=== PATIENT | male | born 1990 | race Caucasian/White ===

== ENCOUNTER → 2016-05-28 | Outpatient (CLI) | payer SELFPAY ==
[~2016-05-28] MED LIST: ALEVE220 MG PO; CYCLOBENZAPRINE10 MG PO; FLEXERIL10 MG PO; HYDROCODONE BIT1 T11 PO; IBU800 MG PO; IBUPROFEN800 MG PO; LISINOPRIL10 M1 PO; LISINOPRIL20 MG PO; LOMOTIL 0.025 M1 TA1 PO; MEDROL DOSEPAK4 MG PO; Motrin,Rufen800 MG PO; NAPROSYN500 MG PO; NORTRIPTYLINE H10 M1 PO; NORVASC5 MG PO; PANTOPRAZOLE SO40 MG PO; PENICILLIN-VK500 M1 PO; PREDNICOT20 MG PO; PREDNISONE20 M1 PO; PRILOSEC20 M2 PO; PRILOSEC20 MG PO; PRILOSEC40 M1 PO; ROBITUSSIN DM 105 ML PO; Veetids,V-Cill500 MG PO; ZANTAC 150150 MG PO; ZOFRAN ODT4 MG SL; ZYRTEC10 MG PO; Zofran4 MG PO
[2016-05-28 07:23] LABS: BASO # 0.1 10*3/uL (0.0-0.1); BASO % 0.6 % (0.0-1.0); EOS # 0.2 10*3/uL (0.0-0.4); EOS % 1.8 % (1.0-4.0); HEMATOCRIT 43.2 % (42.0-52.0); HEMOGLOBIN 14.7 g/dl (14.0-18.0); IG # 0.1 10*3/uL (0.0-0.1); LYMPH # 2.9 10*3/uL (1.3-4.4); LYMPH % 23.1 % (27.0-41.0); MEAN CELL VOLUME 87.4 fl (80.0-94.0); MEAN CORPUSCULAR HGB 29.8 pg (27.0-31.0); MEAN PLATELET VOLUME 11.4 fl (9.6-12.3); MONO # 0.7 10*3/uL (0.1-1.0); MONO % 5.6 % (3.0-9.0); NEUT # 8.6 10*3/uL (2.3-7.9); NEUT % 68.5 % (47.0-73.0); PLATELET COUNT AUTOMATED 197 10*3/uL (130-400); RED BLOOD COUNT 4.94 10*6/uL (4.50-5.90); RED CELL DISTRI WIDTH 12.3 % (0-14.5); WHITE BLOOD COUNT 12.6 10*3/uL (4.8-10.8)
[2016-05-28 07:49] LABS: ALBUMIN 4.2 gm/dl (3.1-4.5); ALKALINE PHOSPHATASE 81 U/L (45-117); BILIRUBIN, TOTAL 1.4 mg/dl (0.2-1.0); BUN 10 mg/dl (7-24); CARBON DIOXIDE 28 mmol/L (21-32); CHLORIDE 104 mmol/L (98-107); CHOLESTEROL 145 mg/dL (<200); EST GLOM FILT AFRICAN AMERICAN > 60 ml/min; FREE T4 1.03 ng/dl (0.76-1.46); GLUCOSE 85 mg/dL (65-99); HDL CHOLESTEROL 60 mg/dl (40-60); LDL CHOLESTEROL 75 mg/dL (9-159); POTASSIUM 3.3 mmol/L (3.5-5.1); SGOT/AST 15 IU/L (3-35); SGPT/ALT 21 U/L (12-78); SODIUM 143 mmol/L (136-145); THYROXINE (T4) TOTAL 9.5 ug/dl (4.5-12.1); TOTAL PROTEIN 7.9 gm/dL (6.4-8.2); TRIGLYCERIDES 51 mg/dl (<150); VLDL CHOLESTEROL 10 mg/dL (6-40)
== END | disposition home or self-care (01) ==
LOC: LAB 06:42
PROVIDERS: Nurse Practitioner Family
DX: I10 Essential (primary) hypertension (principal); M48.06 Spinal stenosis, lumbar region; E66.9 Obesity, unspecified; R53.83 Other fatigue

== ENCOUNTER 2016-07-26 17:17 | Inpatient (IN) | payer BC ==
[~2016-07-26] VITALS: Ht 182.9 cm; Wt 136.6 kg
--- NOTE | ~2016-07-26 | EKG ---
[place], [place] ELECTROCARDIOGRAM REPORT NAME: KARLEE WISEMAN UNIT #: [id number] ROOM: 404 DOCTOR: KEYANNA LEACH MD BIRTHDATE: [birth year] DOS: 07/26/2016 TIME: 17:35. Sinus tachycardia, leftward axis deviation, poor precordial R-wave progression, abnormal electrocardiogram. KEYANNA LEACH MD CM:EKGRPT:ELECTROCARDIOGRAM REPORT [id number] KEYANNA LEACH MD
[2016-07-26 17:24] VITALS: BP 184/100
[2016-07-26 17:47] LABS: BASO # 0.1 10*3/uL (0.0-0.1); BASO % 0.4 % (0.0-1.0); EOS # 0.1 10*3/uL (0.0-0.4); EOS % 0.7 % (1.0-4.0); HEMATOCRIT 43.6 % (42.0-52.0); HEMOGLOBIN 14.9 g/dl (14.0-18.0); IG # 0.1 10*3/uL (0.0-0.1); LYMPH # 2.4 10*3/uL (1.3-4.4); LYMPH % 17.7 % (27.0-41.0); MEAN CELL VOLUME 87.2 fl (80.0-94.0); MEAN CORPUSCULAR HGB 29.8 pg (27.0-31.0); MEAN CORPUSCULAR HGB CONC 34.2 g/dl (33.0-37.0); MEAN PLATELET VOLUME 11.4 fl (9.6-12.3); MONO # 0.7 10*3/uL (0.1-1.0); MONO % 5.2 % (3.0-9.0); NEUT # 10.4 10*3/uL (2.3-7.9); NEUT % 75.6 % (47.0-73.0); PLATELET COUNT AUTOMATED 232 10*3/uL (130-400); RED CELL DISTRI WIDTH 12.2 % (0-14.5); WHITE BLOOD COUNT 13.8 10*3/uL (4.8-10.8)
[2016-07-26 18:04] LABS: BUN 8 mg/dl (7-24); CARBON DIOXIDE 30 mmol/L (21-32); CHLORIDE 106 mmol/L (98-107); EST GLOM FILT AFRICAN AMERICAN > 60 ml/min; GLUCOSE 113 mg/dL (65-99); POTASSIUM 3.4 mmol/L (3.5-5.1); SODIUM 145 mmol/L (136-145)
[2016-07-26 18:05] LABS: TROPONIN I < 0.015 ng/ml (<0.045)
[2016-07-26 19:13] VITALS: BP 143/83
[2016-07-26 19:28] LABS: URINE AMPHETAMINES < 1000 (1000ng/ml); URINE BARBITURATES < 200 (200ng/ml); URINE COCAINE < 300 (300ng/ml)
[2016-07-26 20:00] VITALS: BP 150/68
[2016-07-27] VITALS: BP 139/83
[2016-07-27 00:53] LABS: BILIRUBIN NEGATIVE (NEGATIVE); BLOOD NEGATIVE (NEGATIVE); CLARITY CLEAR (CLEAR); COLOR YELLOW (YELLOW); GLUCOSE NEGATIVE (NEGATIVE); KETONE NEGATIVE (NEGATIVE); LEUKO ESTERASE NEGATIVE (NEGATIVE); NITRITE NEGATIVE (NEGATIVE); PROTEIN NEGATIVE (NEGATIVE); SPECIFIC GRAVITY 1.015 (1.005-1.030); UROBILINOGEN 0.2 E.U./dl (0.2-1.0)
[2016-07-27 01:03] LABS: BACTERIA TRACE; EPITHELIAL CELLS 0-2; RBC 0-2 rbc/hpf (0-2); URINE REFLEX COMMENT NO (NO); WBC 0-2 wbc/hpf (0-5)
[2016-07-27 01:07] LABS: CKMB 1.2 ng/ml (0.5-3.6); CPK 94 U/L (39-308); TROPONIN I < 0.015 ng/ml (<0.045)
[2016-07-27 06:47] LABS: CKMB 1.5 ng/ml (0.5-3.6); CPK 95 U/L (39-308)
[2016-07-27 06:50] LABS: BASO # 0.1 10*3/uL (0.0-0.1); BASO % 0.6 % (0.0-1.0); EOS # 0.2 10*3/uL (0.0-0.4); HEMOGLOBIN 13.6 g/dl (14.0-18.0); IG # 0.1 10*3/uL (0.0-0.1); LYMPH # 2.3 10*3/uL (1.3-4.4); LYMPH % 24.6 % (27.0-41.0); MEAN CORPUSCULAR HGB 29.2 pg (27.0-31.0); MEAN CORPUSCULAR HGB CONC 33.2 g/dl (33.0-37.0); MEAN PLATELET VOLUME 11.8 fl (9.6-12.3); MONO # 0.7 10*3/uL (0.1-1.0); MONO % 6.9 % (3.0-9.0); NEUT # 6.2 10*3/uL (2.3-7.9); NEUT % 65.4 % (47.0-73.0); PLATELET COUNT AUTOMATED 210 10*3/uL (130-400); RED BLOOD COUNT 4.66 10*6/uL (4.50-5.90); RED CELL DISTRI WIDTH 12.5 % (0-14.5); WHITE BLOOD COUNT 9.5 10*3/uL (4.8-10.8)
[2016-07-27 06:53] LABS: TROPONIN I < 0.015 ng/ml (<0.045)
[2016-07-27 07:12] LABS: CHLORIDE 110 mmol/L (98-107); POTASSIUM 3.8 mmol/L (3.5-5.1); SODIUM 143 mmol/L (136-145)
[2016-07-27 07:16] LABS: PROTHROMBIN TIME 10.4 SECONDS (9.0-12.4)
[2016-07-27 07:30] LABS: ALBUMIN 3.4 gm/dl (3.1-4.5); ALKALINE PHOSPHATASE 81 U/L (45-117); BILIRUBIN, TOTAL 0.9 mg/dl (0.2-1.0); BUN 11 mg/dl (7-24); CARBON DIOXIDE 24 mmol/L (21-32); CHOLESTEROL 128 mg/dL (<200); EST GLOM FILT AFRICAN AMERICAN > 60 ml/min; FREE T4 0.95 ng/dl (0.76-1.46); GLUCOSE 105 mg/dL (65-99); HDL CHOLESTEROL 49 mg/dl (40-60); LDL CHOLESTEROL 63 mg/dL (9-159); MAGNESIUM 2.4 mg/dL (1.5-2.1); SGOT/AST 7 IU/L (3-35); SGPT/ALT 20 U/L (12-78); THYROID STIM HORMONE (HS) 0.644 uIU/ml (0.358-4.75); TOTAL PROTEIN 6.8 gm/dL (6.4-8.2); TRIGLYCERIDES 79 mg/dl (<150); VLDL CHOLESTEROL 16 mg/dL (6-40)
[2016-07-27 08:00] VITALS: BP 148/80
[2016-07-27 08:53] LABS: FOLIC ACID 8.7 ng/mL (>5.38); VITAMIN D, 25-HYDROXY 26.3 ng/mL (30-100)
[2016-07-27 10:07] LABS: HEMOGLOBIN A1c 5.4 % (4.8-5.6)
[2016-07-27] MEDS ORDERED: NORVASC10 MG PO (11:01)
[2016-07-27 12:00] VITALS: BP 158/83
[2016-07-27] MEDS ORDERED: IBU800 M1 PO (15:08)
== END 2016-07-27 16:24 | disposition home or self-care (01) | DRG 315 ==
LOC: ED 17:17 → EDHOLD 18:58 → 4E 19:40
PROVIDERS: Emergency Medicine; Hospitalist
DX: I30.9 Acute pericarditis, unspecified (principal); R65.10 Systemic inflammatory response syndrome (SIRS) of non-infectious origin without acute organ dysfunction; I10 Essential (primary) hypertension; Z82.49 Family history of ischemic heart disease and other diseases of the circulatory system; K21.9 Gastro-esophageal reflux disease without esophagitis; E87.6 Hypokalemia; D72.829 Elevated white blood cell count, unspecified; R00.0 Tachycardia, unspecified; K29.70 Gastritis, unspecified, without bleeding; F17.200 Nicotine dependence, unspecified, uncomplicated; E66.01 Morbid (severe) obesity due to excess calories; M54.40 Lumbago with sciatica, unspecified side; R33.9 Retention of urine, unspecified

== ENCOUNTER 2016-07-30 11:24 | Inpatient (IN) | payer SELFPAY ==
[~2016-07-30] VITALS: Ht 188 cm; Wt 136.1 kg
--- NOTE | ~2016-07-30 | ST ---
[place], [place] EXERCISE STRESS TEST REPORT [id number] UNIT #: [id number] ROOM: 520 DOCTOR: ANA ROSA WHITMAN MD BIRTHDATE: [birth year] DOS: 07/31/2016 EXERCISE TREADMILL STRESS TEST REFERRING PHYSICIAN: Dr. Huff. INDICATIONS: Central chest pain. The patient underwent standard Christofer protocol stress test treadmill. The patient's baseline EKG showed no ischemic changes with normal sinus. The patient's baseline heart rate was 73 beats per minute with a blood pressure 158/98. The patient's peak heart rate was 185 with a blood pressure of 176/40. The patient's peak heart rate of 178 represents 96% of maximum predicted. The patient exercised for 7 minutes and 15 seconds on the treadmill. The patient had no ischemic changes. No significant arrhythmias aside from single PVCs. The patient did note atypical chest discomfort that was present prior to the exam that was unchanged with exertion. The patient's peak metabolic level was 10 METs. SUMMARY OF FINDINGS: 1. Unremarkable exercise treadmill stress. 2. Lama Treadmill score of 7.2 portending a low risk prognosis. 3. Atypical chest was present prior to exercise and throughout the study. 4. Please see separate report for perfusion scan results. ANA ROSA WHITMAN MD CM:STRESS:EXERCISE STRESS TEST REPORT [id number] ANA ROSA WHITMAN MD
[~2016-07-30 11:24] MED LIST changes: +IBU800 M1 PO; +NORVASC10 MG PO
[2016-07-30 11:29] VITALS: BP 158/91
[2016-07-30 12:01] LABS: BASO # 0.1 10*3/uL (0.0-0.1); BASO % 0.7 % (0.0-1.0); EOS # 0.1 10*3/uL (0.0-0.4); EOS % 1.2 % (1.0-4.0); HEMATOCRIT 43.9 % (42.0-52.0); HEMOGLOBIN 14.9 g/dl (14.0-18.0); IG # 0.1 10*3/uL (0.0-0.1); LYMPH # 1.7 10*3/uL (1.3-4.4); LYMPH % 21.8 % (27.0-41.0); MEAN CELL VOLUME 86.9 fl (80.0-94.0); MEAN CORPUSCULAR HGB 29.5 pg (27.0-31.0); MEAN CORPUSCULAR HGB CONC 33.9 g/dl (33.0-37.0); MONO # 0.4 10*3/uL (0.1-1.0); MONO % 4.7 % (3.0-9.0); NEUT # 5.4 10*3/uL (2.3-7.9); NEUT % 70.8 % (47.0-73.0); PLATELET COUNT AUTOMATED 201 10*3/uL (130-400); RED BLOOD COUNT 5.05 10*6/uL (4.50-5.90); RED CELL DISTRI WIDTH 12.3 % (0-14.5); WHITE BLOOD COUNT 7.7 10*3/uL (4.8-10.8)
[2016-07-30 12:10] LABS: PROTHROMBIN TIME 10.4 SECONDS (9.0-12.4)
[2016-07-30 12:17] LABS: ALBUMIN 3.7 gm/dl (3.1-4.5); ALKALINE PHOSPHATASE 79 U/L (45-117); BILIRUBIN, TOTAL 0.9 mg/dl (0.2-1.0); BUN 11 mg/dl (7-24); C-REACTIVE PROTEIN 0.66 MG/DL (0-0.3); CARBON DIOXIDE 29 mmol/L (21-32); CHLORIDE 107 mmol/L (98-107); CKMB 1.4 ng/ml (0.5-3.6); CPK 121 U/L (39-308); EST GLOM FILT AFRICAN AMERICAN > 60 ml/min; GLUCOSE 109 mg/dL (65-99); POTASSIUM 3.8 mmol/L (3.5-5.1); SGOT/AST 12 IU/L (3-35); SGPT/ALT 20 U/L (12-78); SODIUM 141 mmol/L (136-145); TOTAL PROTEIN 7.5 gm/dL (6.4-8.2)
[2016-07-30 12:19] LABS: TROPONIN I < 0.015 ng/ml (<0.045)
[2016-07-30 13:09] VITALS: BP 142/80
[2016-07-30 14:09] VITALS: BP 132/74
[2016-07-30 18:14] LABS: CPK 122 U/L (39-308)
[2016-07-30 18:15] LABS: CKMB 1.5 ng/ml (0.5-3.6)
[2016-07-30 18:17] LABS: TROPONIN I < 0.015 ng/ml (<0.045)
[2016-07-30 20:00] VITALS: BP 144/69
[2016-07-31] VITALS: BP 134/73
[2016-07-31 00:27] LABS: CKMB 1.2 ng/ml (0.5-3.6); CPK 96 U/L (39-308)
[2016-07-31 00:28] LABS: TROPONIN I < 0.015 ng/ml (<0.045)
[2016-07-31 06:49] LABS: HEMATOCRIT 42.9 % (42.0-52.0); HEMOGLOBIN 14.6 g/dl (14.0-18.0); MEAN CORPUSCULAR HGB 29.6 pg (27.0-31.0); MEAN PLATELET VOLUME 11.7 fl (9.6-12.3); PLATELET COUNT AUTOMATED 200 10*3/uL (130-400); RED BLOOD COUNT 4.93 10*6/uL (4.50-5.90); RED CELL DISTRI WIDTH 12.4 % (0-14.5); WHITE BLOOD COUNT 9.2 10*3/uL (4.8-10.8)
[2016-07-31 06:52] LABS: BASO # 0.1 10*3/uL (0.0-0.1); BASO % 0.5 % (0.0-1.0); EOS # 0.2 10*3/uL (0.0-0.4); EOS % 2.2 % (1.0-4.0); IG # 0.1 10*3/uL (0.0-0.1); LYMPH # 2.5 10*3/uL (1.3-4.4); LYMPH % 26.7 % (27.0-41.0); MONO # 0.6 10*3/uL (0.1-1.0); MONO % 6.7 % (3.0-9.0); NEUT # 5.8 10*3/uL (2.3-7.9)
[2016-07-31 07:29] LABS: BUN 13 mg/dl (7-24); CARBON DIOXIDE 27 mmol/L (21-32); CHLORIDE 108 mmol/L (98-107); CHOLESTEROL 135 mg/dL (<200); EST GLOM FILT AFRICAN AMERICAN > 60 ml/min; FREE T4 0.83 ng/dl (0.76-1.46); GLUCOSE 98 mg/dL (65-99); HDL CHOLESTEROL 48 mg/dl (40-60); LDL CHOLESTEROL 64 mg/dL (9-159); POTASSIUM 3.7 mmol/L (3.5-5.1); SODIUM 142 mmol/L (136-145); TRIGLYCERIDES 116 mg/dl (<150); VLDL CHOLESTEROL 23 mg/dL (6-40)
[2016-07-31 07:36] LABS: THYROID STIM HORMONE (HS) 0.815 uIU/ml (0.358-4.75)
[2016-07-31 07:51] LABS: HEMOGLOBIN A1c 5.7 % (4.8-5.6)
[2016-07-31 08:00] VITALS: BP 146/72
[2016-07-31 08:21] LABS: VITAMIN D, 25-HYDROXY 22.1 ng/mL (30-100)
[2016-07-31 08:22] LABS: FOLIC ACID 9.04 ng/mL (>5.38)
[2016-07-31 12:00] VITALS: BP 177/98
[2016-07-31 16:00] VITALS: BP 156/81
[2016-07-31] MEDS ORDERED: LISINOPRIL40 MG PO (17:03)
[2016-07-31] MEDS ORDERED: VITAMIN D1000 IU PO (17:07)
== END 2016-07-31 17:44 | disposition home or self-care (01) | DRG 392 ==
LOC: ED 11:24 → 5E 12:59 → EDHOLD 12:59 → 5E 13:05
PROVIDERS: Emergency Medicine; Internal Medicine Hospice and Palliative Medicine
PROC: 4A02XM4 Measurement of Cardiac Total Activity, External Approach (ICD-10-PCS; principal; 2016-07-31)
DX: K21.9 Gastro-esophageal reflux disease without esophagitis (principal); I10 Essential (primary) hypertension; F17.200 Nicotine dependence, unspecified, uncomplicated; M54.9 Dorsalgia, unspecified; Z82.49 Family history of ischemic heart disease and other diseases of the circulatory system; Z79.1 Long term (current) use of non-steroidal anti-inflammatories (NSAID); Z79.899 Other long term (current) drug therapy

== ENCOUNTER 2016-09-17 20:40 | Emergency (ER) | payer OTHER, BC ==
[~2016-09-17] VITALS: Ht 187.9 cm; Wt 131.5 kg
[~2016-09-17 20:40] MED LIST changes: +LISINOPRIL40 MG PO; +VITAMIN D1000 IU PO
[2016-09-17] MEDS ORDERED: CYCLOBENZAPRINE10 MG PO (23:30)
[2016-09-17] MEDS ORDERED: NAPROSYN500 MG PO (23:30)
== END 2016-09-17 23:35 | disposition home or self-care (01) ==
LOC: ED 20:40
DX: S16.1XXA Strain of muscle, fascia and tendon at neck level, initial encounter (principal); R51 Headache; F17.200 Nicotine dependence, unspecified, uncomplicated; Z98.890 Other specified postprocedural states; Z79.899 Other long term (current) drug therapy; V49.88XA Car occupant (driver) (passenger) injured in other specified transport accidents, initial encounter; Y93.89 Activity, other specified; Y92.413 State road as the place of occurrence of the external cause; Y99.9 Unspecified external cause status

== ENCOUNTER 2016-10-09 12:59 | Emergency (ER) | payer BC ==
[~2016-10-09] VITALS: Ht 187.9 cm; Wt 140.6 kg
[2016-10-09] MEDS ORDERED: WELLBUTRIN XL300 MG PO (13:10)
[2016-10-09] MEDS ORDERED: LOPRESSOR25 MG PO (13:10)
[2016-10-09] MEDS ORDERED: CLONIDINE HYDR0.1 MG PO (13:10)
[2016-10-09] MEDS ORDERED: AUGMENTIN 875-875 MG PO (18:07)
== END 2016-10-09 18:09 | disposition home or self-care (01) ==
LOC: ED 12:59
DX: F07.81 Postconcussional syndrome (principal); J01.00 Acute maxillary sinusitis, unspecified; I10 Essential (primary) hypertension; Z79.899 Other long term (current) drug therapy

== ENCOUNTER → 2016-11-20 | Outpatient (CLI) | payer OTHER ==
[~2016-11-20] MED LIST changes: +AUGMENTIN 875-875 MG PO; +CLONIDINE HYDR0.1 MG PO; +LOPRESSOR25 MG PO; +WELLBUTRIN XL300 MG PO
[2016-11-20 09:55] LABS: ALKALINE PHOSPHATASE 85 U/L (45-117); BILIRUBIN, TOTAL 1.4 mg/dl (0.2-1.0); BUN 12 mg/dl (7-24); CARBON DIOXIDE 30 mmol/L (21-32); CHLORIDE 104 mmol/L (98-107); EST GLOM FILT AFRICAN AMERICAN > 60 ml/min; GLUCOSE 101 mg/dL (65-99); POTASSIUM 3.8 mmol/L (3.5-5.1); SGOT/AST 14 IU/L (3-35); SGPT/ALT 24 U/L (12-78); SODIUM 140 mmol/L (136-145); TOTAL PROTEIN 7.6 gm/dL (6.4-8.2)
[2016-11-21 13:05] LABS: H PYLORI IGG AB 162289 <0.9 U/mL (0.0-0.8)
[2016-11-21 20:13] LABS: H.PYLORI IGM <9.0 units (0.0-8.9); H.PYLORI IgA 163170 <9.0 units (0.0-8.9)
== END | disposition home or self-care (01) ==
LOC: LAB 09:13
PROVIDERS: Nurse Practitioner Family
DX: R10.11 Right upper quadrant pain (principal)

== ENCOUNTER 2016-12-05 14:37 | Emergency (ER) | payer SELFPAY ==
[~2016-12-05] VITALS: Ht 187.9 cm; Wt 140.6 kg
[2016-12-05 15:38] LABS: BASO # 0.1 10*3/uL (0.0-0.1); BASO % 0.5 % (0.0-1.0); EOS # 0.1 10*3/uL (0.0-0.4); EOS % 1.3 % (1.0-4.0); HEMOGLOBIN 15.6 g/dl (14.0-18.0); IG # 0.1 10*3/uL (0.0-0.1); LYMPH # 1.8 10*3/uL (1.3-4.4); LYMPH % 17.8 % (27.0-41.0); MEAN CELL VOLUME 87.6 fl (80.0-94.0); MEAN CORPUSCULAR HGB 29.7 pg (27.0-31.0); MEAN CORPUSCULAR HGB CONC 33.9 g/dl (33.0-37.0); MEAN PLATELET VOLUME 11.4 fl (9.6-12.3); MONO # 0.7 10*3/uL (0.1-1.0); MONO % 6.8 % (3.0-9.0); NEUT # 7.2 10*3/uL (2.3-7.9); NEUT % 73.1 % (47.0-73.0); PLATELET COUNT AUTOMATED 201 10*3/uL (130-400); RED BLOOD COUNT 5.25 10*6/uL (4.50-5.90); RED CELL DISTRI WIDTH 12.4 % (0-14.5); WHITE BLOOD COUNT 9.9 10*3/uL (4.8-10.8)
[2016-12-05 15:46] LABS: BILIRUBIN NEGATIVE (NEGATIVE); BLOOD NEGATIVE (NEGATIVE); CLARITY CLEAR (CLEAR); COLOR YELLOW (YELLOW); GLUCOSE NEGATIVE (NEGATIVE); KETONE NEGATIVE (NEGATIVE); LEUKO ESTERASE NEGATIVE (NEGATIVE); NITRITE NEGATIVE (NEGATIVE); PROTEIN NEGATIVE (NEGATIVE); SPECIFIC GRAVITY 1.025 (1.005-1.030); UROBILINOGEN 0.2 E.U./dl (0.2-1.0)
[2016-12-05 15:53] LABS: ALKALINE PHOSPHATASE 89 U/L (45-117); BILIRUBIN, TOTAL 1.6 mg/dl (0.2-1.0); BUN 12 mg/dl (7-24); C-REACTIVE PROTEIN 1.48 MG/DL (0-0.3); CARBON DIOXIDE 25 mmol/L (21-32); CHLORIDE 108 mmol/L (98-107); EST GLOM FILT AFRICAN AMERICAN > 60 ml/min; GLUCOSE 76 mg/dL (65-99); POTASSIUM 3.7 mmol/L (3.5-5.1); SGOT/AST 13 IU/L (3-35); SGPT/ALT 22 U/L (12-78); SODIUM 140 mmol/L (136-145); TOTAL PROTEIN 8.1 gm/dL (6.4-8.2)
[2016-12-05 15:54] LABS: RBC 0-2 rbc/hpf (0-2); URINE REFLEX COMMENT NO (NO); WBC 0-2 wbc/hpf (0-5)
[2016-12-05] MEDS ORDERED: HYDROCODONE BIT1 T11 PO (17:31)
[2016-12-05] MEDS ORDERED: BENTYL10 MG PO (17:31)
== END 2016-12-05 22:09 | disposition home or self-care (01) ==
LOC: ED 14:37
PROVIDERS: Physician Assistant
DX: K80.50 Calculus of bile duct without cholangitis or cholecystitis without obstruction (principal); F17.200 Nicotine dependence, unspecified, uncomplicated

== ENCOUNTER → 2016-12-13 | Day surgery (SDC) | payer MEDICAID ==
[2016-12-13] VITALS (10 sets, daily range): BP systolic 105–140; BP diastolic 54–83
[~2016-12-13] VITALS: Ht 187.9 cm; Wt 140.6 kg
[~2016-12-13] MED LIST changes: +BENTYL10 MG PO; +NORCO 5-325 TA1 EACH PO
--- NOTE | ~2016-12-13 | O ---
[place], [place] OPERATIVE NOTE NAME: KARLEE WISEMAN [facility] #: [id number] UNIT #: [id number] ROOM: DOCTOR: DAVONTE CORRAL MD BIRTHDATE: [birth year] DOS: 12/13/2016 PREOPERATIVE DIAGNOSIS: Chronic calculous cholecystitis. POSTOPERATIVE DIAGNOSIS: Chronic calculous cholecystitis. PROCEDURE: Laparoscopic cholecystectomy. SURGEON: Davonte Corral MD ANIMAL MAINTENANCE SUPERVISOR: MS3. ANESTHESIA: General with endotracheal intubation. INDICATIONS: This is a 26-year-old gentleman with a longstanding history of right upper quadrant pain who was recently diagnosed with having gallbladder sludge and stones. He is here for the above-mentioned procedure. The procedure and its complications were explained to the patient in detail preoperatively. Complications that were discussed included but were not limited to bleeding, infection, hematoma/seroma/abscess formation, biloma formation, inadvertent injury to the common bile duct and prolonged postoperative pain. He agreed to proceed. DESCRIPTION OF PROCEDURE: After identifying the patient, the patient was brought to the operating suite and laid in the supine position. After induction of general anesthesia, timeout procedure was called and the parts were then painted and draped in the usual sterile fashion. An incision transversely was made below the umbilicus. The skin and the subcutaneous tissue were incised. The fascia was incised vertically and 2 stay sutures with 0 Vicryl were taken on either side. The peritoneum was opened and a 12 mm Yogi port was introduced into the peritoneal cavity. Under direct vision, an epigastric incision of 10 mm and two 5 mm incisions were made in the right upper quadrant and appropriate size ports were introduced. The gallbladder was found to have a lot of adhesions, which were taken down with the help of blunt dissection. The gallbladder was then retracted superiorly and laterally. The cystic duct and the cystic artery were meticulously dissected until the critical view of safety was obtained. Thereafter, both of these structures were clipped 3 times and cut between the first and the second clip. The gallbladder was then removed from the bed of the gallbladder with the help of electrocautery. It was placed in an EndoCatch bag and removed from the peritoneal cavity and sent for histopathological diagnosis. Hemostasis was achieved in the liver bed and irrigation was used to clean the liver bed of spilled blood. Thereafter, the irrigation fluid was sucked away and hemostasis was confirmed. Thereafter, the right upper quadrant and the epigastric ports were removed and the umbilical port was also removed. The peritoneum was decompressed. Thereafter, the fascial defect was approximated with the help of 0 Vicryl in a [id number] fashion. The skin edges were infiltrated with 1% plain lidocaine and were approximated with the help of 4-0 Vicryl in a subcuticular running fashion. Dressings were placed on all the 4 incisions. The patient was extubated uneventfully and brought back to the recovery room in stable fashion. There [place], [place] OPERATIVE NOTE NAME: KARLEE WISEMAN UNIT #: [id number] ROOM: DOCTOR: DAVONTE CORRAL MD BIRTHDATE: [address] Davonte Corral, the attending surgeon, was present throughout the operating case. Davonte Corral MD CM:OPRECORD:OPERATIVE NOTE [id number] DAVONTE CORRAL MD 12/13/16 1228 interface
== END | disposition home or self-care (01) ==
LOC: SDC 12-11 08:45
DX: K80.12 Calculus of gallbladder with acute and chronic cholecystitis without obstruction (principal); I10 Essential (primary) hypertension; J45.909 Unspecified asthma, uncomplicated; K21.9 Gastro-esophageal reflux disease without esophagitis; F41.9 Anxiety disorder, unspecified; E10.8 Type 1 diabetes mellitus with unspecified complications; Z82.49 Family history of ischemic heart disease and other diseases of the circulatory system; F17.210 Nicotine dependence, cigarettes, uncomplicated

== ENCOUNTER → 2016-12-24 | Outpatient (CLI) | payer MEDICAID ==
[2016-12-24 13:56] LABS: BASO # 0.1 10*3/uL (0.0-0.1); BASO % 0.6 % (0.0-1.0); EOS # 0.4 10*3/uL (0.0-0.4); EOS % 3.6 % (1.0-4.0); HEMOGLOBIN 15.1 g/dl (14.0-18.0); LYMPH % 17.5 % (27.0-41.0); MEAN CELL VOLUME 88.2 fl (80.0-94.0); MEAN CORPUSCULAR HGB 29.6 pg (27.0-31.0); MEAN CORPUSCULAR HGB CONC 33.6 g/dl (33.0-37.0); MEAN PLATELET VOLUME 11.3 fl (9.6-12.3); MONO # 0.6 10*3/uL (0.1-1.0); MONO % 5.3 % (3.0-9.0); NEUT # 8.1 10*3/uL (2.3-7.9); NEUT % 72.1 % (47.0-73.0); PLATELET COUNT AUTOMATED 228 10*3/uL (130-400); RED CELL DISTRI WIDTH 11.9 % (0-14.5); WHITE BLOOD COUNT 11.3 10*3/uL (4.8-10.8)
[2016-12-24 14:21] LABS: ALBUMIN 3.9 gm/dl (3.1-4.5); ALKALINE PHOSPHATASE 85 U/L (45-117); BUN 11 mg/dl (7-24); CHLORIDE 106 mmol/L (98-107); CREATININE 1.24 mg/dL (0.70-1.30); POTASSIUM 3.9 mmol/L (3.5-5.1); SGOT/AST 14 IU/L (3-35); SGPT/ALT 32 U/L (12-78); SODIUM 140 mmol/L (136-145)
== END | disposition home or self-care (01) ==
LOC: LAB 13:41 → US 14:00
PROVIDERS: Surgery
DX: K76.0 Fatty (change of) liver, not elsewhere classified (principal); R16.0 Hepatomegaly, not elsewhere classified; Z90.49 Acquired absence of other specified parts of digestive tract

== ENCOUNTER 2017-01-08 10:02 | Emergency (ER) | payer OTHER ==
[~2017-01-08] VITALS: Wt 140.6 kg
== END 2017-01-08 11:08 | disposition home or self-care (01) ==
LOC: ED 10:02
DX: S05.02XA Injury of conjunctiva and corneal abrasion without foreign body, left eye, initial encounter (principal); T15.92XA Foreign body on external eye, part unspecified, left eye, initial encounter; G89.29 Other chronic pain; K21.9 Gastro-esophageal reflux disease without esophagitis; I10 Essential (primary) hypertension; E66.9 Obesity, unspecified; F17.200 Nicotine dependence, unspecified, uncomplicated; Z98.890 Other specified postprocedural states; Z91.018 Allergy to other foods; Z79.899 Other long term (current) drug therapy; X58.XXXA Exposure to other specified factors, initial encounter; Y93.89 Activity, other specified; Y92.69 Other specified industrial and construction area as the place of occurrence of the external cause; Y99.9 Unspecified external cause status

== ENCOUNTER 2017-01-18 13:29 | Emergency (ER) | payer OTHER ==
[~2017-01-18] VITALS: Ht 187.9 cm; Wt 137.0 kg
[2017-01-18 14:46] LABS: BASO # 0.1 10*3/uL (0.0-0.1); BASO % 0.6 % (0.0-1.0); EOS # 0.2 10*3/uL (0.0-0.4); EOS % 2.3 % (1.0-4.0); HEMATOCRIT 42.7 % (42.0-52.0); HEMOGLOBIN 14.4 g/dl (14.0-18.0); LYMPH # 2.2 10*3/uL (1.3-4.4); LYMPH % 20.6 % (27.0-41.0); MEAN CELL VOLUME 88.4 fl (80.0-94.0); MEAN CORPUSCULAR HGB 29.8 pg (27.0-31.0); MEAN CORPUSCULAR HGB CONC 33.7 g/dl (33.0-37.0); MEAN PLATELET VOLUME 11.2 fl (9.6-12.3); MONO # 0.5 10*3/uL (0.1-1.0); NEUT # 7.5 10*3/uL (2.3-7.9); NEUT % 70.9 % (47.0-73.0); PLATELET COUNT AUTOMATED 196 10*3/uL (130-400); RED BLOOD COUNT 4.83 10*6/uL (4.50-5.90); RED CELL DISTRI WIDTH 12.1 % (0-14.5); WHITE BLOOD COUNT 10.6 10*3/uL (4.8-10.8)
[2017-01-18 15:01] LABS: ALBUMIN 3.9 gm/dl (3.1-4.5); ALKALINE PHOSPHATASE 78 U/L (45-117); BUN 10 mg/dl (7-24); CHLORIDE 107 mmol/L (98-107); CREATININE 1.13 mg/dL (0.70-1.30); LIPASE 102 U/L (73-393); POTASSIUM 3.8 mmol/L (3.5-5.1); SGOT/AST 15 IU/L (3-35); SGPT/ALT 23 U/L (12-78); SODIUM 141 mmol/L (136-145); TOTAL PROTEIN 7.5 gm/dL (6.4-8.2)
[2017-01-18 16:08] LABS: BILIRUBIN NEGATIVE (NEGATIVE); BLOOD NEGATIVE (NEGATIVE); CLARITY SL CLOUDY (CLEAR); COLOR YELLOW (YELLOW); GLUCOSE NEGATIVE (NEGATIVE); KETONE NEGATIVE (NEGATIVE); LEUKO ESTERASE NEGATIVE (NEGATIVE); NITRITE NEGATIVE (NEGATIVE); UROBILINOGEN 0.2 E.U./dl (0.2-1.0)
[2017-01-18 16:17] LABS: BACTERIA TRACE; EPITHELIAL CELLS 0-2; WBC 0-2 wbc/hpf (0-5)
[2017-01-18] MEDS ORDERED: ZOFRAN ODT4 MG SL (17:30)
== END 2017-01-18 22:06 | disposition home or self-care (01) ==
LOC: ED 13:29
PROVIDERS: Physician Assistant
DX: R10.11 Right upper quadrant pain (principal); R11.2 Nausea with vomiting, unspecified; R19.7 Diarrhea, unspecified; F17.200 Nicotine dependence, unspecified, uncomplicated; Z91.018 Allergy to other foods; Z79.899 Other long term (current) drug therapy

== ENCOUNTER → 2017-01-25 | Outpatient (CLI) | payer OTHER | END | disposition home or self-care (01) | LOC: CT 14:00 | DX: R19.7 Diarrhea, unspecified (principal); R10.9 Unspecified abdominal pain ==

== ENCOUNTER 2017-05-02 00:21 | Emergency (ER) | payer OTHER ==
[~2017-05-02] VITALS: Ht 187.9 cm; Wt 142.9 kg
[2017-05-02 00:57] LABS: BASO # 0.1 10*3/uL (0.0-0.1); BASO % 0.5 % (0.0-1.0); EOS # 0.2 10*3/uL (0.0-0.4); HEMOGLOBIN 14.4 g/dl (14.0-18.0); LYMPH # 3.4 10*3/uL (1.3-4.4); LYMPH % 28.2 % (27.0-41.0); MEAN CELL VOLUME 86.1 fl (80.0-94.0); MEAN CORPUSCULAR HGB 30.3 pg (27.0-31.0); MEAN CORPUSCULAR HGB CONC 35.1 g/dl (33.0-37.0); MEAN PLATELET VOLUME 10.9 fl (9.6-12.3); MONO # 0.8 10*3/uL (0.1-1.0); MONO % 6.8 % (3.0-9.0); NEUT # 7.4 10*3/uL (2.3-7.9); NEUT % 61.9 % (47.0-73.0); PLATELET COUNT AUTOMATED 241 10*3/uL (130-400); RED BLOOD COUNT 4.76 10*6/uL (4.50-5.90); RED CELL DISTRI WIDTH 11.9 % (0-14.5)
[2017-05-02 01:14] LABS: ALBUMIN 3.6 gm/dl (3.1-4.5); ALKALINE PHOSPHATASE 104 U/L (45-117); BUN 9 mg/dl (7-24); CHLORIDE 104 mmol/L (98-107); CREATININE 1.13 mg/dL (0.70-1.30); POTASSIUM 3.6 mmol/L (3.5-5.1); SGOT/AST 16 IU/L (3-35); SGPT/ALT 44 U/L (12-78); SODIUM 141 mmol/L (136-145); TOTAL PROTEIN 7.1 gm/dL (6.4-8.2)
[2017-05-02 01:52] LABS: BILIRUBIN NEGATIVE (NEGATIVE); BLOOD NEGATIVE (NEGATIVE); CLARITY CLEAR (CLEAR); COLOR YELLOW (YELLOW); GLUCOSE NEGATIVE (NEGATIVE); KETONE NEGATIVE (NEGATIVE); LEUKO ESTERASE NEGATIVE (NEGATIVE); NITRITE NEGATIVE (NEGATIVE); PH 6.5 (5.0-9.0); SPECIFIC GRAVITY 1.015 (1.005-1.030); UROBILINOGEN 0.2 E.U./dl (0.2-1.0)
[2017-05-02 02:02] LABS: RBC 0-2 rbc/hpf (0-2); WBC 0-2 wbc/hpf (0-5)
[2017-05-02] MEDS ORDERED: MIRALAX POWDER255 G1 PO (03:07)
== END 2017-05-02 03:34 | disposition home or self-care (01) ==
LOC: ED 00:21
PROVIDERS: Emergency Medicine Emergency Medical Services
DX: K59.00 Constipation, unspecified (principal); R10.11 Right upper quadrant pain; F17.200 Nicotine dependence, unspecified, uncomplicated; G89.29 Other chronic pain; K21.9 Gastro-esophageal reflux disease without esophagitis; I10 Essential (primary) hypertension; E66.9 Obesity, unspecified; Z98.890 Other specified postprocedural states; Z91.018 Allergy to other foods; Z79.899 Other long term (current) drug therapy

== ENCOUNTER 2017-05-29 12:53 | Emergency (ER) | payer OTHER ==
[~2017-05-29 12:53] MED LIST changes: +MIRALAX POWDER255 G1 PO
[2017-05-29] MEDS ORDERED: DELTASONE20 M1 PO (14:18)
== END 2017-05-29 14:25 | disposition home or self-care (01) ==
LOC: ED 12:53
DX: B34.9 Viral infection, unspecified (principal); F17.200 Nicotine dependence, unspecified, uncomplicated; Z91.018 Allergy to other foods

== ENCOUNTER 2017-09-02 10:07 | Emergency (ER) | payer OTHER ==
[~2017-09-02] VITALS: Ht 187.9 cm; Wt 145.1 kg
[~2017-09-02 10:07] MED LIST changes: +DELTASONE20 M1 PO
[2017-09-02 10:27] LABS: BASO # 0.1 10*3/uL (0.0-0.1); BASO % 0.7 % (0.0-1.0); EOS # 0.1 10*3/uL (0.0-0.4); EOS % 1.1 % (1.0-4.0); HEMOGLOBIN 15.5 g/dl (14.0-18.0); LYMPH # 2.1 10*3/uL (1.3-4.4); LYMPH % 20.8 % (27.0-41.0); MEAN CELL VOLUME 88.1 fl (80.0-94.0); MEAN CORPUSCULAR HGB 29.7 pg (27.0-31.0); MEAN CORPUSCULAR HGB CONC 33.7 g/dl (33.0-37.0); MEAN PLATELET VOLUME 11.1 fl (9.6-12.3); MONO # 0.5 10*3/uL (0.1-1.0); MONO % 5.1 % (3.0-9.0); NEUT # 7.1 10*3/uL (2.3-7.9); NEUT % 71.8 % (47.0-73.0); PLATELET COUNT AUTOMATED 192 10*3/uL (130-400); RED BLOOD COUNT 5.22 10*6/uL (4.50-5.90); RED CELL DISTRI WIDTH 12.2 % (0-14.5); WHITE BLOOD COUNT 9.9 10*3/uL (4.8-10.8)
[2017-09-02 10:41] LABS: ALBUMIN 4.2 gm/dl (3.1-4.5); ALKALINE PHOSPHATASE 92 U/L (45-117); BUN 13 mg/dl (7-24); CHLORIDE 105 mmol/L (98-107); CREATININE 1.22 mg/dL (0.70-1.30); POTASSIUM 3.9 mmol/L (3.5-5.1); SGOT/AST 14 IU/L (3-35); SGPT/ALT 24 U/L (12-78); SODIUM 141 mmol/L (136-145); TOTAL PROTEIN 7.7 gm/dL (6.4-8.2)
== END 2017-09-02 12:30 | disposition home or self-care (01) ==
LOC: ED 10:07
PROVIDERS: Nurse Practitioner Family
DX: R10.31 Right lower quadrant pain (principal); F17.200 Nicotine dependence, unspecified, uncomplicated; G89.29 Other chronic pain; I10 Essential (primary) hypertension; E66.9 Obesity, unspecified; Z98.890 Other specified postprocedural states; Z79.899 Other long term (current) drug therapy; Z91.018 Allergy to other foods

== ENCOUNTER → 2017-09-27 | Outpatient (CLI) | payer OTHER ==
[~2017-09-27] MED LIST changes: +CELEXA10 MG PO
[2017-09-27 14:35] LABS: BASO % 0.4 % (0.0-1.0); EOS # 0.1 10*3/uL (0.0-0.4); EOS % 1.3 % (1.0-4.0); HEMATOCRIT 46.4 % (42.0-52.0); HEMOGLOBIN 15.4 g/dl (14.0-18.0); LYMPH # 1.9 10*3/uL (1.3-4.4); LYMPH % 20.5 % (27.0-41.0); MEAN CELL VOLUME 89.2 fl (80.0-94.0); MEAN CORPUSCULAR HGB 29.6 pg (27.0-31.0); MEAN CORPUSCULAR HGB CONC 33.2 g/dl (33.0-37.0); MEAN PLATELET VOLUME 10.9 fl (9.6-12.3); MONO # 0.6 10*3/uL (0.1-1.0); MONO % 6.7 % (3.0-9.0); NEUT # 6.4 10*3/uL (2.3-7.9); NEUT % 70.4 % (47.0-73.0); PLATELET COUNT AUTOMATED 213 10*3/uL (130-400); WHITE BLOOD COUNT 9.1 10*3/uL (4.8-10.8)
[2017-09-27 15:07] LABS: ALKALINE PHOSPHATASE 87 U/L (45-117); BUN 14 mg/dl (7-24); CHLORIDE 107 mmol/L (98-107); CHOLESTEROL 168 mg/dL (<200); CREATININE 1.06 mg/dL (0.70-1.30); FREE T4 0.94 ng/dl (0.76-1.46); HDL CHOLESTEROL 45 mg/dl (40-60); LDL CHOLESTEROL 87 mg/dL (9-159); POTASSIUM 3.7 mmol/L (3.5-5.1); SGOT/AST 16 IU/L (3-35); SGPT/ALT 29 U/L (12-78); SODIUM 141 mmol/L (136-145); TOTAL PROTEIN 7.7 gm/dL (6.4-8.2); TRIGLYCERIDES 179 mg/dl (<150); VLDL CHOLESTEROL 36 mg/dL (6-40)
[2017-09-27 15:12] LABS: THYROID STIM HORMONE (HS) 0.383 uIU/ml (0.358-4.75)
== END ==
LOC: LAB 14:18
PROVIDERS: Nurse Practitioner Family
DX: I10 Essential (primary) hypertension (principal); F41.9 Anxiety disorder, unspecified; M25.542 Pain in joints of left hand

== ENCOUNTER 2017-10-21 06:48 | Emergency (ER) | payer OTHER ==
[~2017-10-21] VITALS: Ht 187.9 cm; Wt 145.1 kg
[~2017-10-21 06:48] MED LIST changes: -CELEXA10 MG PO
[2017-10-21] MEDS ORDERED: CELEXA10 MG PO (06:59)
[2017-10-21] MEDS ORDERED: IBU800 MG PO (08:09)
[2017-10-21] MEDS ORDERED: CYCLOBENZAPRINE10 MG PO (08:09)
== END 2017-10-21 08:38 | disposition home or self-care (01) ==
LOC: ED 06:48
DX: S39.012A Strain of muscle, fascia and tendon of lower back, initial encounter (principal); F17.200 Nicotine dependence, unspecified, uncomplicated; G89.29 Other chronic pain; I10 Essential (primary) hypertension; E66.9 Obesity, unspecified; Z98.890 Other specified postprocedural states; Z90.49 Acquired absence of other specified parts of digestive tract; Z79.899 Other long term (current) drug therapy; Z91.018 Allergy to other foods; W01.0XXA Fall on same level from slipping, tripping and stumbling without subsequent striking against object, initial encounter; Y93.E1 Activity, personal bathing and showering; Y92.89 Other specified places as the place of occurrence of the external cause; Y99.9 Unspecified external cause status

== ENCOUNTER 2017-12-27 08:37 | Emergency (ER) | payer SELFPAY ==
[~2017-12-27] VITALS: Ht 187.9 cm; Wt 142.9 kg
[~2017-12-27 08:37] MED LIST changes: +CELEXA10 MG PO
[2017-12-27 09:15] LABS: BILIRUBIN NEGATIVE (NEGATIVE); BLOOD NEGATIVE (NEGATIVE); CLARITY CLEAR (CLEAR); COLOR YELLOW (YELLOW); GLUCOSE NEGATIVE (NEGATIVE); KETONE NEGATIVE (NEGATIVE); LEUKO ESTERASE NEGATIVE (NEGATIVE); NITRITE NEGATIVE (NEGATIVE); UROBILINOGEN 0.2 E.U./dl (0.2-1.0)
[2017-12-27 09:23] LABS: MUCOUS 1+; WBC 0-2 wbc/hpf (0-5)
[2017-12-27 09:27] LABS: BASO # 0.1 10*3/uL (0.0-0.1); BASO % 0.6 % (0.0-1.0); EOS # 0.1 10*3/uL (0.0-0.4); EOS % 1.3 % (1.0-4.0); HEMATOCRIT 43.5 % (42.0-52.0); HEMOGLOBIN 14.5 g/dl (14.0-18.0); LYMPH # 1.5 10*3/uL (1.3-4.4); LYMPH % 15.3 % (27.0-41.0); MEAN CELL VOLUME 89.5 fl (80.0-94.0); MEAN CORPUSCULAR HGB 29.8 pg (27.0-31.0); MEAN CORPUSCULAR HGB CONC 33.3 g/dl (33.0-37.0); MEAN PLATELET VOLUME 11.2 fl (9.6-12.3); MONO # 0.6 10*3/uL (0.1-1.0); MONO % 5.8 % (3.0-9.0); NEUT # 7.2 10*3/uL (2.3-7.9); NEUT % 76.4 % (47.0-73.0); PLATELET COUNT AUTOMATED 199 10*3/uL (130-400); RED BLOOD COUNT 4.86 10*6/uL (4.50-5.90); RED CELL DISTRI WIDTH 12.5 % (0-14.5); WHITE BLOOD COUNT 9.5 10*3/uL (4.8-10.8)
[2017-12-27 09:40] LABS: ALBUMIN 3.8 gm/dl (3.1-4.5); ALKALINE PHOSPHATASE 80 U/L (45-117); BUN 12 mg/dl (7-24); CHLORIDE 107 mmol/L (98-107); CREATININE 1.03 mg/dL (0.70-1.30); LIPASE 87 U/L (73-393); POTASSIUM 4.1 mmol/L (3.5-5.1); SGOT/AST 13 IU/L (3-35); SGPT/ALT 26 U/L (12-78); SODIUM 142 mmol/L (136-145); TOTAL PROTEIN 7.7 gm/dL (6.4-8.2)
[2017-12-27] MEDS ORDERED: PHENERGAN25 M3 PO (12:42)
== END 2017-12-27 12:51 | disposition home or self-care (01) ==
LOC: ED 08:37
PROVIDERS: Emergency Medicine
DX: R11.2 Nausea with vomiting, unspecified (principal); R10.11 Right upper quadrant pain; E66.9 Obesity, unspecified; I10 Essential (primary) hypertension; G89.29 Other chronic pain; K21.9 Gastro-esophageal reflux disease without esophagitis; F17.200 Nicotine dependence, unspecified, uncomplicated; Z90.49 Acquired absence of other specified parts of digestive tract; Z79.899 Other long term (current) drug therapy; Z91.018 Allergy to other foods

== ENCOUNTER 2018-02-25 16:08 | Emergency (ER) | payer SELFPAY ==
[~2018-02-25] VITALS: Ht 187.9 cm; Wt 140.6 kg
[~2018-02-25 16:08] MED LIST changes: +PHENERGAN25 M3 PO
[2018-02-25] MEDS ORDERED: Motrin,Rufen800 MG PO (18:18)
== END 2018-02-25 18:22 | disposition home or self-care (01) ==
LOC: ED 16:08
DX: S80.01XA Contusion of right knee, initial encounter (principal); G89.29 Other chronic pain; K21.9 Gastro-esophageal reflux disease without esophagitis; E66.9 Obesity, unspecified; I10 Essential (primary) hypertension; F17.200 Nicotine dependence, unspecified, uncomplicated; Z79.899 Other long term (current) drug therapy; W18.09XA Striking against other object with subsequent fall, initial encounter; Y93.02 Activity, running; Y92.096 Garden or yard of other non-institutional residence as the place of occurrence of the external cause; Y99.8 Other external cause status; Z91.018 Allergy to other foods

== ENCOUNTER 2018-05-13 10:15 | Inpatient (IN) | payer BC ==
[~2018-05-13] VITALS: Ht 188 cm; Wt 148.9 kg
--- NOTE | ~2018-05-13 | EKG ---
[place], [place] ELECTROCARDIOGRAM REPORT NAME: KARLEE WISEMAN UNIT #: [id number] ROOM: 504 DOCTOR: EPIPHANY DRAFT REPORT BIRTHDATE: [birth year] [facility] Test Date: 2018-05-13 Test Time: 10:16:11 Pat Name: KARLEE WISEMAN Department: Room: 504 Gender: M Occupational Therapy Program Director: KALEY : 1990 Requested By: LYNN MEDINA DNP Order Number: [id number] Reading MD: Geovanny Reddy MD Measurements Intervals [place] Rate: 76 P: 28 AR: 176 QRS: -50 QRSD: 103 T: 4 QT: 414 QTc: 466 Interpretive Statements Sinus rhythm Left anterior fascicular block Probable left ventricular hypertrophy Electronically Signed On 05-14-2018 9:29:35 PST by Geovanny Reddy MD CM:EKGRPT:ELECTROCARDIOGRAM REPORT [id number] LYNN MEDINA DNP EPIPHANY DRAFT REPORT LYNN MEDINA DNP
--- NOTE | ~2018-05-13 | EKG ---
[place], [place] ELECTROCARDIOGRAM REPORT NAME: KARLEE WISEMAN UNIT #: [id number] ROOM: 504 DOCTOR: EPIPHANY DRAFT REPORT BIRTHDATE: [birth year] [facility] Test Date: 2018-05-13 Test Time: 13:35:39 Pat Name: KARLEE WISEMAN Department: Room: 504 Gender: M Ruby Software Developer: [email or web address] : 1990 Requested By: LYNN MEDINA DNP Order Number: [id number] Reading MD: Geovanny Reddy MD Measurements Intervals [place] Rate: 71 P: 35 MD: 183 QRS: -45 QRSD: 104 T: 3 QT: 415 QTc: 451 Interpretive Statements Sinus rhythm Left anterior fascicular block Probable left ventricular hypertrophy Borderline T abnormalities, inferior leads Electronically Signed On 05-14-2018 9:33:34 PST by Geovanny Reddy MD CM:EKGRPT:ELECTROCARDIOGRAM REPORT [id number] 0933 LYNN MEDINA DNP EPIPHANY DRAFT REPORT LYNN MEDINA DNP
--- NOTE | ~2018-05-13 | EKG ---
[place], [place] ELECTROCARDIOGRAM REPORT NAME: KARLEE WISEMAN UNIT #: [id number] ROOM: 504 DOCTOR: DAGO DRAFT REPORT BIRTHDATE: [birth year] [facility] Test Date: 2018-05-13 Test Time: 16:07:05 Pat Name: KARLEE WISEMAN Department: Room: 504 Gender: M Image Processing Engineer: [email or web address] : 1990 Requested By: LYNN MEDINA DNP Order Number: [id number] Reading MD: Geovanny Reddy MD Measurements Intervals [place] Rate: 78 P: 36 [place]: 175 QRS: -44 QRSD: 102 T: -4 QT: 399 QTc: 455 Interpretive Statements Sinus rhythm Left anterior fascicular block Probable left ventricular hypertrophy Electronically Signed On 05-14-2018 9:34:46 PST by Geovanny Reddy MD CM:EKGRPT:ELECTROCARDIOGRAM REPORT [id number] 0934 LYNN MEDINA DNP EPIPHANY DRAFT REPORT LYNN MEDINA DNP
[2018-05-13 10:52] LABS: BASO # 0.1 10*3/uL (0.0-0.1); BASO % 0.6 % (0.0-1.0); EOS # 0.1 10*3/uL (0.0-0.4); EOS % 1.3 % (1.0-4.0); HEMATOCRIT 45.9 % (42.0-52.0); HEMOGLOBIN 15.6 g/dl (14.0-18.0); LYMPH % 18.5 % (27.0-41.0); MEAN CELL VOLUME 89.6 fl (80.0-94.0); MEAN CORPUSCULAR HGB 30.5 pg (27.0-31.0); MEAN PLATELET VOLUME 11.1 fl (9.6-12.3); MONO # 0.7 10*3/uL (0.1-1.0); MONO % 6.2 % (3.0-9.0); NEUT # 7.7 10*3/uL (2.3-7.9); NEUT % 72.8 % (47.0-73.0); PLATELET COUNT AUTOMATED 223 10*3/uL (130-400); RED BLOOD COUNT 5.12 10*6/uL (4.50-5.90); RED CELL DISTRI WIDTH 12.5 % (0-14.5); WHITE BLOOD COUNT 10.6 10*3/uL (4.8-10.8)
[2018-05-13 11:03] LABS: ACT PARTIAL THROMBO TIME 23.8 SECONDS (20.8-31.5)
[2018-05-13 11:07] LABS: ALBUMIN 3.9 gm/dl (3.1-4.5); ALKALINE PHOSPHATASE 84 U/L (45-117); BUN 12 mg/dl (7-24); CHLORIDE 102 mmol/L (98-107); SGOT/AST 22 IU/L (3-35); SGPT/ALT 61 U/L (12-78); SODIUM 138 mmol/L (136-145)
[2018-05-13 11:09] LABS: TROPONIN I < 0.015 ng/ml (<0.045)
[2018-05-13 12:50] VITALS: BP 121/76
[2018-05-13 13:34] VITALS: BP 127/83
--- NOTE | 2018-05-13 13:34 | NUR ---
A 28, admitted to , under the services of GAVIN Gasca DO with a diagnosis of CHEST PAIN. Chief complaint is CHEST PAIN. Patient arrived via bed from ER. Monitor applied. Initial assessment completed. Vital signs taken and recorded. GAVIN GASCA DO notified of admission to the unit. Orders received. See assessment for past medical history, medications and allergies. Patient and/or family oriented to unit. [facility] visitation policy reviewed. Clothing/patient valuable form completed. LUIS DUMONT
[2018-05-13 13:40] VITALS: BP 126/77
[2018-05-13] MEDS ORDERED: AMOXICILLIN875 MG PO (14:42)
[2018-05-13] MEDS ORDERED: HYDROCHLOROTH12.5 M3 PO (14:42)
--- NOTE | 2018-05-13 14:43 | NUR ---
MED REC UPDATED, PT IS ON AMOXICILLIN FOR STREP THROAT PER PT
--- NOTE | 2018-05-13 15:22 | NUR ---
[facility] OFF[facility] NOTIFIED OF CONSULT
[2018-05-13 16:00] VITALS: BP 144/79
--- NOTE | 2018-05-13 16:11 | NUR ---
PT RESTING IN BED NO DISTRESS NOTED. FAMILY AT BEDSIDE WILL MONITOR
[2018-05-13 20:00] VITALS: BP 139/81
--- NOTE | 2018-05-13 20:00 | NUR ---
PT. INFORMED THIS RN THAT "i TOOK MY AMOXICILLIN ALREADY, I HAD IT WITH ME." EXPLAINED TO PATIENT NOT TO TAKE HE OWN MEDICATION THAT IT COULD LEAD TO DOUBLE MEDICATING AND POSSIBLE OVERDOSING. PT. AGREED HE WOULD NOT DO THAT ANYMORE AND THE MEDICATION WAS LOCKED UP IN TO [facility].
[2018-05-14] VITALS: BP 141/75
--- NOTE | 2018-05-14 01:27 | NUR ---
24 HR chart check completed.
[2018-05-14 08:00] VITALS: BP 120/60
--- NOTE | 2018-05-14 12:00 | NUR ---
PT DISCHARGED AT THIS TIME. IV REMOVED AND PRESSURE DRESSING APPLIED. HEART MONITOR RETURNED TO FLOOR. VERBALIZED UNDERSTANDING OF DISCHARGE INSTRUCTIONS.
--- NOTE | 2018-05-14 13:24 | NUR ---
Import Export Agent in to talk to patient. Patient states lives at [address] with . There are NO steps in the home. Physician: ELENA Pharmacy: [facility] Home health services: NONE Patient's level of ADLs: INDEPENDENT Patient has working utilities: YES DME: NONE Follow-up physician's appointment after d/c: WILL BE MADE BY HOSPITALIST NURSE DIRECTOR ON DISCHARGE Does patient want to access PORTAL?: NO Discharge plan PT LIVES AT HOME WITH HIS AND IS INDEPENDENT IN CARE. CAN BE DISCHARGED TO HOME WHEN MEDICALLY STABLE. . JERRY SANABRIA
[2018-06-13] MEDS ORDERED: BUSPIRONE10 MG PO (08:53)
== END 2018-05-14 12:00 | disposition home or self-care (01) | DRG 313 ==
LOC: ED 10:15 → EDHOLD 12:09 → 5E 12:09
PROVIDERS: Nurse Practitioner Family; ADMIT Internal Medicine
DX: R07.89 Other chest pain (principal); Z68.41 Body mass index [BMI] 40.0-44.9, adult; I10 Essential (primary) hypertension; E78.5 Hyperlipidemia, unspecified; F41.9 Anxiety disorder, unspecified; G89.29 Other chronic pain; M54.9 Dorsalgia, unspecified; K59.00 Constipation, unspecified; K21.9 Gastro-esophageal reflux disease without esophagitis; E80.6 Other disorders of bilirubin metabolism; E78.1 Pure hyperglyceridemia; E55.9 Vitamin D deficiency, unspecified; E66.01 Morbid (severe) obesity due to excess calories; F07.81 Postconcussional syndrome; F17.200 Nicotine dependence, unspecified, uncomplicated; Z71.6 Tobacco abuse counseling; Z90.49 Acquired absence of other specified parts of digestive tract; Z82.49 Family history of ischemic heart disease and other diseases of the circulatory system; Z88.9 Allergy status to unspecified drugs, medicaments and biological substances

== ENCOUNTER 2018-05-18 02:39 | Emergency (ER) | payer BC ==
[~2018-05-18] VITALS: Ht 187.9 cm; Wt 154.2 kg
[~2018-05-18 02:39] MED LIST changes: +AMOXICILLIN875 MG PO; +HYDROCHLOROTH12.5 M3 PO
[2018-05-18] MEDS ORDERED: PENICILLIN-VK500 MG PO (03:21)
[2018-06-13] MEDS ORDERED: BUSPIRONE10 MG PO (08:53)
== END 2018-05-18 03:48 | disposition home or self-care (01) ==
LOC: ED 02:39
DX: K04.01 Reversible pulpitis (principal); I10 Essential (primary) hypertension; G89.29 Other chronic pain; K21.9 Gastro-esophageal reflux disease without esophagitis; E78.1 Pure hyperglyceridemia; E66.01 Morbid (severe) obesity due to excess calories; Z91.018 Allergy to other foods; Z79.899 Other long term (current) drug therapy; Z79.2 Long term (current) use of antibiotics; Z90.49 Acquired absence of other specified parts of digestive tract; Z87.891 Personal history of nicotine dependence

== ENCOUNTER 2018-10-20 06:03 | Emergency (ER) | payer BC ==
[~2018-10-20] VITALS: Ht 187.9 cm; Wt 145.1 kg
--- NOTE | ~2018-10-20 | EKG ---
[place], [place] ELECTROCARDIOGRAM REPORT NAME: KARLEE WISEMAN UNIT #: [id number] ROOM: [facility] BIRTH[facility]: [address] [facility] Test Date: 2018-10-20 Test Time: 07:01:10 Pat Name: KARLEE WISEMAN Department: Room: Gender: M Newspaper Columnist: Jimenez Malik : 1990 Requested By: JUN MEEHAN Order Number: [id number] Reading MD: Henrik Najera MD Measurements Intervals [place] Rate: 58 P: 31 [place]: 229 QRS: -42 QRSD: 105 T: -20 QT: 437 QTc: 430 Interpretive Statements Sinus rhythm Atrial premature complex Prolonged VT interval Left anterior fascicular block Nonspecific T abnormalities, inferior leads Baseline wander in lead(s) II,aVF,V3 Compared to ECG 05/13/2018 16:07:05 Atrial premature complex(es) now present First degree AV block now present T-wave abnormality now present Electronically Signed On 10-22-2018 12:07:19 PDT by Henrik Najera MD CM:EKGRPT:ELECTROCARDIOGRAM REPORT [id number] 1207 JUN BECKWITH DRAFT REPORT JUN MEEHAN DO
[~2018-10-20 06:03] MED LIST changes: +BUSPIRONE10 MG PO; +PENICILLIN-VK500 MG PO
[2018-10-20 07:02] LABS: BASO # 0.1 10*3/uL (0.0-0.1); BASO % 0.7 % (0.0-1.0); EOS # 0.2 10*3/uL (0.0-0.4); EOS % 2.4 % (1.0-4.0); HEMATOCRIT 41.7 % (42.0-52.0); HEMOGLOBIN 13.7 g/dl (14.0-18.0); LYMPH # 1.9 10*3/uL (1.3-4.4); LYMPH % 21.7 % (27.0-41.0); MEAN CELL VOLUME 91.4 fl (80.0-94.0); MEAN CORPUSCULAR HGB CONC 32.9 g/dl (33.0-37.0); MEAN PLATELET VOLUME 10.9 fl (9.6-12.3); MONO # 0.6 10*3/uL (0.1-1.0); MONO % 6.4 % (3.0-9.0); NEUT # 5.9 10*3/uL (2.3-7.9); PLATELET COUNT AUTOMATED 198 10*3/uL (130-400); RED BLOOD COUNT 4.56 10*6/uL (4.50-5.90); RED CELL DISTRI WIDTH 12.7 % (0-14.5); WHITE BLOOD COUNT 8.7 10*3/uL (4.8-10.8)
[2018-10-20 07:22] LABS: ALBUMIN 3.4 gm/dl (3.1-4.5); ALKALINE PHOSPHATASE 72 U/L (45-117); BUN 17 mg/dl (7-24); CHLORIDE 109 mmol/L (98-107); POTASSIUM 3.7 mmol/L (3.5-5.1); SGOT/AST 16 IU/L (3-35); SGPT/ALT 41 U/L (12-78); SODIUM 144 mmol/L (136-145); TOTAL PROTEIN 6.9 gm/dL (6.4-8.2)
[2018-10-20 07:24] LABS: TROPONIN I < 0.015 ng/ml (<0.045)
== END 2018-10-20 07:47 | disposition home or self-care (01) ==
LOC: ED 06:03
PROVIDERS: Emergency Medicine
DX: I10 Essential (primary) hypertension (principal); R42 Dizziness and giddiness; G89.29 Other chronic pain; K21.9 Gastro-esophageal reflux disease without esophagitis; E78.1 Pure hyperglyceridemia; E66.01 Morbid (severe) obesity due to excess calories; Z91.018 Allergy to other foods; Z79.899 Other long term (current) drug therapy; Z90.49 Acquired absence of other specified parts of digestive tract; Z87.891 Personal history of nicotine dependence

== ENCOUNTER 2019-06-25 18:17 | Emergency (ER) | payer OTHER ==
[~2019-06-25] VITALS: Ht 187.9 cm; Wt 149.7 kg
[2019-06-25] MEDS ORDERED: DOXYCYCLINE100 M3 PO (21:08)
[2019-06-25] MEDS ORDERED: TESSALON PERLE100 M1 PO (21:08)
== END 2019-06-25 20:59 | disposition home or self-care (01) ==
LOC: ED 18:17
DX: J40 Bronchitis, not specified as acute or chronic (principal); K21.9 Gastro-esophageal reflux disease without esophagitis; I10 Essential (primary) hypertension; F41.9 Anxiety disorder, unspecified; Z87.891 Personal history of nicotine dependence; Z91.018 Allergy to other foods; Z88.8 Allergy status to other drugs, medicaments and biological substances; Z79.899 Other long term (current) drug therapy

== ENCOUNTER 2019-10-27 12:12 | Emergency (ER) | payer SELFPAY ==
[~2019-10-27] VITALS: Ht 187.9 cm; Wt 156.9 kg
[~2019-10-27 12:12] MED LIST changes: +DOXYCYCLINE100 M3 PO; +TESSALON PERLE100 M1 PO
[2019-10-27 12:53] LABS: BASO % 0.4 % (0.0-1.0); EOS # 0.1 10*3/uL (0.0-0.4); EOS % 1.1 % (1.0-4.0); HEMATOCRIT 42.2 % (42.0-52.0); LYMPH # 1.9 10*3/uL (1.3-4.4); LYMPH % 19.9 % (27.0-41.0); MEAN CELL VOLUME 89.4 fl (80.0-94.0); MEAN CORPUSCULAR HGB 29.9 pg (27.0-31.0); MEAN CORPUSCULAR HGB CONC 33.4 g/dl (33.0-37.0); MEAN PLATELET VOLUME 11.1 fl (9.6-12.3); MONO # 0.7 10*3/uL (0.1-1.0); MONO % 6.7 % (3.0-9.0); NEUT # 6.9 10*3/uL (2.3-7.9); NEUT % 71.4 % (47.0-73.0); PLATELET COUNT AUTOMATED 210 10*3/uL (130-400); RED BLOOD COUNT 4.72 10*6/uL (4.50-5.90); RED CELL DISTRI WIDTH 12.7 % (0-14.5); WHITE BLOOD COUNT 9.7 10*3/uL (4.8-10.8)
[2019-10-27 13:04] LABS: ACT PARTIAL THROMBO TIME 26.4 SECONDS (20.0-32.1)
[2019-10-27 13:09] LABS: ALBUMIN 3.9 gm/dl (3.1-4.5); ALKALINE PHOSPHATASE 85 U/L (45-117); BUN 14 mg/dl (7-24); CHLORIDE 109 mmol/L (98-107); CREATININE 0.97 mg/dL (0.70-1.30); LIPASE 66 U/L (73-393); POTASSIUM 3.7 mmol/L (3.5-5.1); SGOT/AST 13 IU/L (3-35); SGPT/ALT 28 U/L (12-78); SODIUM 139 mmol/L (136-145); TOTAL PROTEIN 7.7 gm/dL (6.4-8.2); TROPONIN I < 0.015 ng/ml (<0.045)
[2019-10-27 15:48] LABS: BILIRUBIN NEGATIVE (NEGATIVE); CLARITY SL CLOUDY (CLEAR); COLOR YELLOW (YELLOW); GLUCOSE NEGATIVE (NEGATIVE)
[2019-10-27 15:49] LABS: BACTERIA 1+; BLOOD NEGATIVE (NEGATIVE); EPITHELIAL CELLS 0-2; KETONE NEGATIVE (NEGATIVE); LEUKO ESTERASE NEGATIVE (NEGATIVE); MUCOUS 2+; NITRITE NEGATIVE (NEGATIVE); UROBILINOGEN 0.2 E.U./dl (0.2-1.0)
== END 2019-10-27 17:48 | disposition home or self-care (01) ==
LOC: ED 12:12
PROVIDERS: Nurse Practitioner Family
DX: R55 Syncope and collapse (principal); I10 Essential (primary) hypertension; J45.909 Unspecified asthma, uncomplicated; K21.9 Gastro-esophageal reflux disease without esophagitis; F41.9 Anxiety disorder, unspecified; Z88.8 Allergy status to other drugs, medicaments and biological substances; Z79.899 Other long term (current) drug therapy

== ENCOUNTER 2020-06-02 22:48 | Emergency (ER) | payer MEDICAID ==
[~2020-06-02] VITALS: Ht 187.9 cm; Wt 145.1 kg
[2020-06-02] MEDS ORDERED: PREDNISONE20 M1 PO (23:36)
[2020-06-02] MEDS ORDERED: METHOCARBAMOL500 M1 PO (23:36)
[2020-06-03 08:01] LABS: HEMATOCRIT 49.7 % (42.0-52.0); MEAN CELL VOLUME 90.7 fl (80.0-94.0); MEAN CORPUSCULAR HGB 29.2 pg (27.0-31.0); MEAN CORPUSCULAR HGB CONC 32.2 g/dl (33.0-37.0); MEAN PLATELET VOLUME 11.2 fl (9.6-12.3); PLATELET COUNT AUTOMATED 245 10*3/uL (130-400); RED BLOOD COUNT 5.48 10*6/uL (4.50-5.90); RED CELL DISTRI WIDTH 12.4 % (0-14.5); WHITE BLOOD COUNT 12.5 10*3/uL (4.8-10.8)
[2020-06-03 08:12] LABS: ACT PARTIAL THROMBO TIME 27.4 SECONDS (20.0-32.1)
[2020-06-03 08:21] LABS: ALBUMIN 4.3 gm/dl (3.1-4.5); ALKALINE PHOSPHATASE 101 U/L (45-117); BUN 15 mg/dl (7-24); CHLORIDE 106 mmol/L (98-107); CREATININE 1.32 mg/dL (0.70-1.30); POTASSIUM 3.8 mmol/L (3.5-5.1); SGOT/AST 11 IU/L (3-35); SGPT/ALT 38 U/L (12-78); SODIUM 137 mmol/L (136-145); TOTAL PROTEIN 8.9 gm/dL (6.4-8.2)
[2020-06-03 08:22] LABS: PLATELET SUFFICIENCY NORMAL (NORMAL); TOTAL CELLS COUNTED 100 #CELLS
[2020-06-03 08:44] LABS: BILIRUBIN Negative (Negative); BLOOD Negative (Negative); CLARITY Clear (Clear); COLOR Yellow (Yellow); GLUCOSE Negative (Negative); KETONE Negative (Negative); LEUKO ESTERASE Negative (Negative); NITRITE Negative (Negative); PH 5.5 (4.5-8.0); SPECIFIC GRAVITY 1.015 (1.001-1.030); UROBILINOGEN 0.2 E.U./dl (0.0-1.0)
[2020-06-03 09:06] LABS: RBC 0-2 rbc/hpf (0-2); WBC 0-2 wbc/hpf (0-5)
[2020-06-03 09:07] LABS: BACTERIA TRACE; EPITHELIAL CELLS 0-2; MUCOUS 1+
[2020-06-03] MEDS ORDERED: DEXAMETHASONE0.75 MG PO (12:41)
[2020-06-03] MEDS ORDERED: PEPCID20 MG PO (12:41)
[2020-06-03] MEDS ORDERED: ULTRAM50 MG PO (12:42)
== END 2020-06-03 12:53 | disposition home or self-care (01) ==
LOC: ED 22:48
PROVIDERS: Emergency Medicine
DX: M54.17 Radiculopathy, lumbosacral region (principal); I10 Essential (primary) hypertension; J45.909 Unspecified asthma, uncomplicated; K21.9 Gastro-esophageal reflux disease without esophagitis; F41.9 Anxiety disorder, unspecified; Z91.018 Allergy to other foods; Z79.2 Long term (current) use of antibiotics; Z79.899 Other long term (current) drug therapy; Z90.49 Acquired absence of other specified parts of digestive tract; Z87.891 Personal history of nicotine dependence

== ENCOUNTER 2020-06-06 17:36 | Emergency (ER) | payer MEDICAID ==
[~2020-06-06] VITALS: Ht 187.9 cm; Wt 145.1 kg
[~2020-06-06 17:36] MED LIST changes: +DEXAMETHASONE0.75 MG PO; +METHOCARBAMOL500 M1 PO; +PEPCID20 MG PO; +ULTRAM50 MG PO
== END 2020-06-06 20:04 | disposition short-term general hospital (02) ==
LOC: ED 17:36
DX: G83.4 Cauda equina syndrome (principal); I10 Essential (primary) hypertension; J45.909 Unspecified asthma, uncomplicated; K21.9 Gastro-esophageal reflux disease without esophagitis; F41.9 Anxiety disorder, unspecified; F17.220 Nicotine dependence, chewing tobacco, uncomplicated; Z79.899 Other long term (current) drug therapy; Z79.2 Long term (current) use of antibiotics; Z90.49 Acquired absence of other specified parts of digestive tract; Z98.890 Other specified postprocedural states; Z87.891 Personal history of nicotine dependence

== ENCOUNTER 2020-11-03 18:23 | Emergency (ER) | payer OTHER ==
[~2020-11-03] VITALS: Ht 187.9 cm; Wt 145.1 kg
[2020-11-03] MEDS ORDERED: IBUPROFEN600 MG PO (21:08)
== END 2020-11-03 21:16 | disposition home or self-care (01) ==
LOC: ED 18:23
DX: S83.8X2A Sprain of other specified parts of left knee, initial encounter (principal); Z87.891 Personal history of nicotine dependence; Z90.49 Acquired absence of other specified parts of digestive tract; Z79.899 Other long term (current) drug therapy; X50.1XXA Overexertion from prolonged static or awkward postures, initial encounter; Y93.02 Activity, running; Y92.89 Other specified places as the place of occurrence of the external cause; Y99.9 Unspecified external cause status

== ENCOUNTER 2020-12-05 15:50 | Emergency (ER) | payer OTHER ==
[~2020-12-05] VITALS: Ht 187.9 cm; Wt 158.8 kg
[~2020-12-05 15:50] MED LIST changes: +IBUPROFEN600 MG PO
[2020-12-05] MEDS ORDERED: NAPROSYN500 MG PO (20:23)
[2020-12-05] MEDS ORDERED: METHOCARBAMOL750 M1 PO (20:23)
== END 2020-12-05 20:33 | disposition home or self-care (01) ==
LOC: ED 15:50
DX: M51.36 Other intervertebral disc degeneration, lumbar region (principal); F17.200 Nicotine dependence, unspecified, uncomplicated; Z79.899 Other long term (current) drug therapy

== ENCOUNTER 2021-01-03 16:44 | Emergency (ER) | payer OTHER ==
[~2021-01-03] VITALS: Ht 187.9 cm; Wt 154.2 kg
[~2021-01-03 16:44] MED LIST changes: +METHOCARBAMOL750 M1 PO
== END 2021-01-03 21:49 | disposition home or self-care (01) ==
LOC: ED 16:44
DX: S90.32XA Contusion of left foot, initial encounter (principal); Z79.899 Other long term (current) drug therapy; Z87.891 Personal history of nicotine dependence; W22.8XXA Striking against or struck by other objects, initial encounter; Y93.89 Activity, other specified; Y92.89 Other specified places as the place of occurrence of the external cause; Y99.8 Other external cause status

== ENCOUNTER 2021-01-22 20:51 | Emergency (ER) | payer OTHER ==
[~2021-01-22] VITALS: Ht 187.9 cm; Wt 154.2 kg
[2021-01-23] MEDS ORDERED: METOPROLOL SUC100 M1 PO (20:34)
== END 2021-01-22 23:04 | disposition left against medical advice (07) ==
LOC: ED 20:51
DX: I10 Essential (primary) hypertension (principal); R07.89 Other chest pain; Z53.21 Procedure and treatment not carried out due to patient leaving prior to being seen by health care provider

== ENCOUNTER 2021-01-23 16:26 | Emergency (ER) | payer OTHER ==
[~2021-01-23] VITALS: Ht 187.9 cm; Wt 158.8 kg
[2021-01-23 19:19] LABS: BASO % 0.4 % (0.0-1.0); EOS # 0.1 10*3/uL (0.0-0.4); EOS % 1.1 % (1.0-4.0); LYMPH # 1.7 10*3/uL (1.3-4.4); LYMPH % 15.6 % (27.0-41.0); MEAN CELL VOLUME 89.2 fl (80.0-94.0); MEAN CORPUSCULAR HGB 30.1 pg (27.0-31.0); MEAN CORPUSCULAR HGB CONC 33.7 g/dl (33.0-37.0); MEAN PLATELET VOLUME 10.8 fl (9.6-12.3); MONO # 0.6 10*3/uL (0.1-1.0); MONO % 5.5 % (3.0-9.0); NEUT # 8.5 10*3/uL (2.3-7.9); NEUT % 76.9 % (47.0-73.0); PLATELET COUNT AUTOMATED 197 10*3/uL (130-400); RED BLOOD COUNT 4.82 10*6/uL (4.50-5.90); RED CELL DISTRI WIDTH 12.6 % (0-14.5)
[2021-01-23 19:36] LABS: ALBUMIN 3.6 gm/dl (3.1-4.5); ALKALINE PHOSPHATASE 84 U/L (45-117); BUN 12 mg/dl (7-24); CHLORIDE 108 mmol/L (98-107); CREATININE 1.07 mg/dL (0.70-1.30); POTASSIUM 3.5 mmol/L (3.5-5.1); SGOT/AST 12 IU/L (3-35); SGPT/ALT 33 U/L (12-78); SODIUM 140 mmol/L (136-145); TOTAL PROTEIN 7.6 gm/dL (6.4-8.2)
[2021-01-23 19:37] LABS: TROPONIN I < 0.015 ng/ml (<0.045)
[2021-01-23] MEDS ORDERED: METOPROLOL SUC100 M1 PO (20:34)
== END 2021-01-23 22:23 | disposition home or self-care (01) ==
LOC: ED 16:26
PROVIDERS: Physician Assistant
DX: I10 Essential (primary) hypertension (principal); Z79.899 Other long term (current) drug therapy; F17.220 Nicotine dependence, chewing tobacco, uncomplicated

== ENCOUNTER 2021-01-30 19:14 | Emergency (ER) | payer OTHER ==
[~2021-01-30] VITALS: Ht 187.9 cm; Wt 158.8 kg
[~2021-01-30 19:14] MED LIST changes: +METOPROLOL SUC100 M1 PO
[2021-01-30] MEDS ORDERED: VISTARIL25 M2 PO (19:43)
[2021-01-31] MEDS ORDERED: OXYCODONE HCL10 M1 PO (11:36)
[2021-01-31] MEDS ORDERED: Orphenadrine C100 MG PO (11:36)
[2021-01-31] MEDS ORDERED: PREDNISONE50 MG PO (11:36)
== END 2021-01-31 11:54 | disposition home or self-care (01) ==
LOC: ED 19:14
DX: M54.16 Radiculopathy, lumbar region (principal); Z79.899 Other long term (current) drug therapy; Z87.891 Personal history of nicotine dependence

== ENCOUNTER 2021-02-16 18:51 | Emergency (ER) | payer OTHER ==
[~2021-02-16] VITALS: Wt 158.8 kg
[~2021-02-16 18:51] MED LIST changes: +OXYCODONE HCL10 M1 PO; +Orphenadrine C100 MG PO; +PREDNISONE50 MG PO; +VISTARIL25 M2 PO
[2021-02-16] MEDS ORDERED: IBUPROFEN600 MG PO (22:20)
== END 2021-02-16 23:01 | disposition home or self-care (01) ==
LOC: ED 18:51
DX: S93.401A Sprain of unspecified ligament of right ankle, initial encounter (principal); S20.211A Contusion of right front wall of thorax, initial encounter; S83.91XA Sprain of unspecified site of right knee, initial encounter; F17.220 Nicotine dependence, chewing tobacco, uncomplicated; Z79.899 Other long term (current) drug therapy; W17.89XA Other fall from one level to another, initial encounter; Y93.89 Activity, other specified; Y92.89 Other specified places as the place of occurrence of the external cause; Y99.8 Other external cause status

== ENCOUNTER 2021-02-20 15:31 | Emergency (ER) | payer OTHER ==
[~2021-02-20] VITALS: Ht 187.9 cm; Wt 158.8 kg
[2021-02-20] MEDS ORDERED: KETOROLAC10 MG PO (20:08)
== END 2021-02-20 20:14 | disposition home or self-care (01) ==
LOC: ED 15:31
DX: S83.91XA Sprain of unspecified site of right knee, initial encounter (principal); Z79.899 Other long term (current) drug therapy; Z87.891 Personal history of nicotine dependence; W18.39XA Other fall on same level, initial encounter; Y93.89 Activity, other specified; Y92.89 Other specified places as the place of occurrence of the external cause; Y99.8 Other external cause status

== ENCOUNTER 2023-04-21 17:15 | Emergency (ER) | payer OTHER ==
[~2023-04-21] VITALS: Ht 187.9 cm; Wt 163.3 kg
[~2023-04-21 17:15] MED LIST changes: +KETOROLAC10 MG PO
[2023-04-21] MEDS ORDERED: OMEPRAZOLE MAGN20 MG PO (17:44)
[2023-04-21] MEDS ORDERED: PERCOCET 10-321 EACH PO (17:46)
[2023-04-21] MEDS ORDERED: LISINOPRIL20 MG PO (17:47)
== END 2023-04-21 21:05 | disposition home or self-care (01) ==
LOC: ED 17:15
DX: G89.29 Other chronic pain (principal); M54.50 Low back pain, unspecified; I10 Essential (primary) hypertension; J45.909 Unspecified asthma, uncomplicated; K21.9 Gastro-esophageal reflux disease without esophagitis; F41.9 Anxiety disorder, unspecified; Z90.49 Acquired absence of other specified parts of digestive tract; Z98.890 Other specified postprocedural states; F17.220 Nicotine dependence, chewing tobacco, uncomplicated

== ENCOUNTER → 2023-12-11 | Outpatient (CLI) | payer OTHER ==
[~2023-12-11] MED LIST changes: +OMEPRAZOLE MAGN20 MG PO; +PERCOCET 10-321 EACH PO
[2023-12-11 10:05] LABS: FREE T4 1.23 ng/dl (0.89-1.76)
== END | disposition home or self-care (01) ==
LOC: LAB 09:18
PROVIDERS: Student in an Organized Health Care Education/Training Program; ATTEND Internal Medicine
DX: E05.90 Thyrotoxicosis, unspecified without thyrotoxic crisis or storm (principal)